=== PATIENT | male | born 1980 | race Caucasian/White ===

== ENCOUNTER → 2021-07-04 10:18 | Outpatient (BNVA) | payer OTHER, SELFPAY | PROVIDERS: Family Provider Family Medicine; PCP Family Medicine; Visit Provider Family Medicine | DX: Z13.1 Encounter for screening for diabetes mellitus (principal); Z13.6 Encounter for screening for cardiovascular disorders; R53.83 Other fatigue; Z68.34 Body mass index [BMI] 34.0-34.9, adult | CPT/HCPCS: 80053; 80061; 84443 ==